=== PATIENT | male | born 1980 | race Caucasian/White ===

== ENCOUNTER 2016-04-21 17:25 | Emergency (ER) | payer SELFPAY ==
[~2016-04-21 17:25] MED LIST: Sodium Chloride Irrig Solution 250 ML BOT ONE
[2016-04-21] MEDS ORDERED: Lidocaine 1% 20 ML MDV ONE (17:39)
[2016-04-21] MEDS ORDERED: Cephalexin 500 MG CAP ONE (18:18)
[2016-04-21] MEDS ORDERED: Triple Antibiotic Oint 1 GM Packet ONE (18:18)
[2016-04-21] MEDS ORDERED: traMADol HCl 50 MG TAB ONE (18:18)
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
--- NOTE | 2016-04-21 19:33 | RAD ---
LEFT HAND FOUR VIEWS 04/21/16 INDICATION: Edema. FINDINGS: There is a metallic BB at the site of swelling on initial images. No acute fracture. No radiopaque f oreign body. There is a chronic appearing avulsive injury adjacent the ulnar styloid. Soft tissue pr ominence of the lateral aspect of the left hand. Correlate clinically. IMPRESSION: No acute osseous abnormality. POS: [facility]
== END 2016-04-21 18:29 | disposition home or self-care (01) ==
LOC: MADERS 17:25
DX: L02.512 Cutaneous abscess of left hand (principal); L03.114 Cellulitis of left upper limb; F17.210 Nicotine dependence, cigarettes, uncomplicated
CPT/HCPCS: 10060; J2001

== ENCOUNTER 2016-06-22 17:43 | Emergency (ER) | payer SELFPAY ==
[2016-06-22] MEDS ORDERED: Ketorolac Tromethamine 60 MG/2 ML VIAL ONE (18:03)
== END 2016-06-22 18:15 | disposition home or self-care (01) ==
LOC: MADERS 17:43
DX: M54.5 Low back pain (principal); F17.210 Nicotine dependence, cigarettes, uncomplicated
CPT/HCPCS: 96372; J1885

== ENCOUNTER 2016-07-28 09:21 | Emergency (ER) | payer SELFPAY ==
[2016-07-28] MEDS ORDERED: Diazepam 5 MG TAB ONE (10:00)
[2016-07-28] MEDS ORDERED: HYDROcodone/Acetaminophen 10/325 mg Tablet ONE (10:00)
[2016-07-28] MEDS ORDERED: predniSONE 20 MG TAB ONE (10:01)
== END 2016-07-28 10:10 | disposition home or self-care (01) ==
LOC: MADERS 09:21
DX: M54.42 Lumbago with sciatica, left side (principal); F17.210 Nicotine dependence, cigarettes, uncomplicated
CPT/HCPCS: 99283; J7506

== ENCOUNTER 2016-08-30 17:20 | Emergency (ER) | payer SELFPAY ==
[2016-08-30] MEDS ORDERED: HYDROcodone/Acetaminophen 10/325 mg Tablet ONE (18:36)
[2016-08-30] MEDS ORDERED: Diazepam 5 MG TAB ONE (18:36)
== END 2016-08-30 18:40 | disposition home or self-care (01) ==
LOC: MADERS 17:20
DX: M54.41 Lumbago with sciatica, right side (principal); F17.210 Nicotine dependence, cigarettes, uncomplicated
CPT/HCPCS: 99283

== ENCOUNTER 2016-09-30 19:05 | Emergency (ER) | payer SELFPAY ==
[2016-09-30] MEDS ORDERED: Ketorolac Tromethamine 30 MG/ML VIAL ONE (19:21)
[2016-09-30] MEDS ORDERED: Cyclobenzaprine 10 MG TAB ONE (19:21)
[2016-09-30] MEDS ORDERED: Ketorolac Tromethamine 60 MG/2 ML VIAL ONE (19:22)
== END 2016-09-30 19:35 | disposition home or self-care (01) ==
LOC: MADERS 19:05
DX: M54.5 Low back pain (principal); F17.210 Nicotine dependence, cigarettes, uncomplicated
CPT/HCPCS: 96372; J1885

== ENCOUNTER 2016-10-16 18:58 | Emergency (ER) | payer SELFPAY ==
[2016-10-16] MEDS ORDERED: traMADol HCl 50 MG TAB ONE (19:23)
== END 2016-10-16 19:30 | disposition home or self-care (01) ==
LOC: MADERS 18:58
DX: S39.012A Strain of muscle, fascia and tendon of lower back, initial encounter (principal); M54.16 Radiculopathy, lumbar region; F17.210 Nicotine dependence, cigarettes, uncomplicated; X50.9XXA Other and unspecified overexertion or strenuous movements or postures, initial encounter
CPT/HCPCS: 99283

== ENCOUNTER 2016-10-28 17:04 | Emergency (ER) | payer SELFPAY | END 2016-10-28 18:23 | disposition home or self-care (01) | LOC: MADERS 17:04 | DX: S29.012A Strain of muscle and tendon of back wall of thorax, initial encounter (principal); M62.830 Muscle spasm of back; F17.210 Nicotine dependence, cigarettes, uncomplicated; V79.9XXA Bus occupant (driver) (passenger) injured in unspecified traffic accident, initial encounter | CPT/HCPCS: 99283 ==

== ENCOUNTER 2016-12-05 19:09 | Emergency (ER) | payer SELFPAY | END 2016-12-05 19:54 | disposition left against medical advice (07) | LOC: MADERS 19:09 | DX: Z53.21 Procedure and treatment not carried out due to patient leaving prior to being seen by health care provider (principal) ==

== ENCOUNTER 2016-12-15 14:36 | Emergency (ER) | payer SELFPAY ==
[2016-12-15 16:05] LABS: #Basophils 0.1 thou/uL (0.0-0.2); #Eosinphils 0.2 thou/uL (0.0-0.7); #Lymphocytes 1.6 thou/uL (1.20-3.40); #Monocytes 0.6 thou/uL (0.11-0.59); #Neutrophils 4.9 thou/uL (1.40-6.50); %Basophils 1.3 % (0.0-1.0); %Eosinophils 3.1 % (0.0-10.0); %Lymphocytes 21.5 % (21.0-51.0); %Neutrophils 66.2 % (42.0-75.0); Hemoglobin 15.5 g/dL (14.0-18.0); Mean Corpuscular HGB CONC 33.8 g/dL (32.0-36.0); Mean Corpuscular Hemoglobin 31.5 pg (27.0-31.0); Mean Corpuscular Volume 93.3 fl (80.0-94.0); Mean Platelet Volume 8.3 fL (7.4-10.4); Platelet Count 211 thou/uL (130-400); RBC Distribution Width 11.7 % (11.5-14.5); Red Blood Cell (RBC) Count 4.92 mill/uL (4.70-6.10); White Blood Cell (WBC) Count 7.4 thou/uL (4.8-10.8)
--- NOTE | 2016-12-15 16:14 | RAD ---
THREE VIEWS OF THE RIGHT SHOULDER: 12/15/16 COMPARISON: None. HISTORY: Right shoulder pain. FINDINGS: Three views of the right shoulder shows no evidence of acute fracture or dislocation. No degenerativ e changes are seen. IMPRESSION: Unremarkable exam. POS: [facility]
--- NOTE | 2016-12-15 16:17 | RAD ---
SINGLE VIEW OF THE CHEST: 12/15/16 COMPARISON: 12/11/15 HISTORY: Chest pain. FINDINGS: Single view of the chest shows a normal sized cardiomediastinal silhouette. There is no evidence of consolidation, mass, or pleural effusion. The bones are unremarkable. IMPRESSION: No evidence of acute cardiopulmonary disease. POS: [facility]
[2016-12-15 16:20] LABS: ALT (SGPT) 26 U/L (8-55); AST (SGOT) 21 U/L (5-34); Albumin 4.4 g/dL (3.5-5.0); Alkaline Phosphatase 65 U/L (40-150); Anion Gap 15 mmol/L (10-20); BUN (Urea Nitrogen) 7 mg/dL (8.9-20.6); Bilirubin, Total Less than 0.3 mg/dL (0.2-1.2); CK (CPK) 85 U/L (30-200); Calc. Creatinine Clearance 0 mL/min (70-130); Calcium 9.2 mg/dL (7.8-10.44); Carbon Dioxide 25 mmol/L (22-29); Chloride 106 mmol/L (98-107); Estimated GFR-MDRD 87; Glucose 96 mg/dL (70-105); Potassium 4.2 mmol/L (3.5-5.1); Protein, Total 7.4 g/dL (6.0-8.3); Sodium 142 mmol/L (136-145)
[2016-12-15 16:22] LABS: CKMB 0.6 ng/mL (0-6.6); Troponin I Less than 0.010 ng/mL (< 0.028)
[2016-12-15] MEDS ORDERED: HYDROcodone/Acetaminophen 10/325 mg Tablet ONE (17:03)
[2016-12-15] MEDS ORDERED: Diazepam 5 MG TAB ONE (17:03)
== END 2016-12-15 17:05 | disposition home or self-care (01) ==
LOC: MADERS 14:36
DX: S43.401A Unspecified sprain of right shoulder joint, initial encounter (principal); F17.210 Nicotine dependence, cigarettes, uncomplicated; W13.2XXA Fall from, out of or through roof, initial encounter; Y92.009 Unspecified place in unspecified non-institutional (private) residence as the place of occurrence of the external cause
CPT/HCPCS: 36415; 71010; 80053; 82553; 84484; 85025; 93005

== ENCOUNTER 2017-01-09 15:32 | Emergency (ER) | payer SELFPAY ==
[2017-01-09] MEDS ORDERED: Diazepam 5 MG TAB ONE (16:15)
[2017-01-09] MEDS ORDERED: HYDROcodone/Acetaminophen 10/325 mg Tablet ONE (16:15)
== END 2017-01-09 16:20 | disposition home or self-care (01) ==
LOC: MADERS 15:32
DX: S29.012A Strain of muscle and tendon of back wall of thorax, initial encounter (principal); M62.830 Muscle spasm of back; F17.210 Nicotine dependence, cigarettes, uncomplicated; X50.0XXA Overexertion from strenuous movement or load, initial encounter
CPT/HCPCS: 99283

== ENCOUNTER 2017-01-21 23:07 | Emergency (ER) | payer SELFPAY ==
[2017-01-22] MEDS ORDERED: Ketorolac Tromethamine 60 MG/2 ML VIAL ONE (00:06)
[2017-01-22] MEDS ORDERED: Diazepam 5 MG TAB ONE (00:06)
== END 2017-01-22 00:23 | disposition home or self-care (01) ==
LOC: MADERS 23:07
DX: M54.5 Low back pain (principal); F17.210 Nicotine dependence, cigarettes, uncomplicated; Z79.891 Long term (current) use of opiate analgesic
CPT/HCPCS: 96372; J1885

== ENCOUNTER 2017-02-03 14:26 | Emergency (ER) | payer SELFPAY ==
[2017-02-03] MEDS ORDERED: HYDROcodone/Acetaminophen 10/325 mg Tablet ONE (15:14)
[2017-02-03] MEDS ORDERED: Diazepam 5 MG TAB ONE (15:14)
== END 2017-02-03 15:15 | disposition home or self-care (01) ==
LOC: MADERS 14:26
DX: M54.5 Low back pain (principal); F17.210 Nicotine dependence, cigarettes, uncomplicated
CPT/HCPCS: 99283

== ENCOUNTER 2017-02-16 18:46 | Emergency (ER) | payer SELFPAY ==
[2017-02-16] MEDS ORDERED: HYDROcodone/Acetaminophen 10/325 mg Tablet ONE (19:18)
[2017-02-16] MEDS ORDERED: Diazepam 5 MG TAB ONE (19:18)
--- NOTE | 2017-02-16 20:01 | CT ---
HEAD CT 02/16/17 INDICATION: Fall from horse, head injury. FINDINGS: There is no ventriculomegaly, mass effect, midline shift, or acute intracranial hemorrhage. Calvariu m is intact. No pneumocephalus. IMPRESSION: No acute intracranial hemorrhage or mass effect. POS: [facility]
--- NOTE | 2017-02-16 20:02 | CT ---
CERVICAL SPINE CT: 02/16/17 INDICATION: Fall from horse, neck injury and pain. FINDINGS: There is mild degenerative change of the cervical spine without fracture or subluxation. Craniocervi bj junction is intact. No retropulsion of bone into the vertebral canal. IMPRESSION: No acute fracture of the cervical spine. POS: [facility]
== END 2017-02-16 20:55 | disposition home or self-care (01) ==
LOC: MADERS 18:46
DX: S10.93XA Contusion of unspecified part of neck, initial encounter (principal); S20.222A Contusion of left back wall of thorax, initial encounter; V80.010A Animal-rider injured by fall from or being thrown from horse in noncollision accident, initial encounter; F17.210 Nicotine dependence, cigarettes, uncomplicated
CPT/HCPCS: 70450; 72125

== ENCOUNTER 2017-03-05 13:51 | Emergency (ER) | payer SELFPAY ==
[2017-03-05] MEDS ORDERED: traMADol HCl 50 MG TAB ONE (14:57)
[2017-03-05] MEDS ORDERED: Ketorolac Tromethamine 10 MG TAB ONE (14:58)
== END 2017-03-05 15:00 | disposition home or self-care (01) ==
LOC: MADERS 13:51
DX: S61.011A Laceration without foreign body of right thumb without damage to nail, initial encounter (principal); L08.9 Local infection of the skin and subcutaneous tissue, unspecified; F17.210 Nicotine dependence, cigarettes, uncomplicated; W45.8XXA Other foreign body or object entering through skin, initial encounter
CPT/HCPCS: 12002

== ENCOUNTER 2017-03-08 18:52 | Emergency (ER) | payer SELFPAY ==
[2017-03-08] MEDS ORDERED: Dexamethasone 4 MG TAB ONE (19:33)
[2017-03-08] MEDS ORDERED: Benzonatate 100 MG CAP ONE (19:33)
--- NOTE | 2017-03-08 19:49 | RAD ---
CHEST TWO VIEW 03/08/17 HISTORY: Cough. COMPARISON: Chest one view, 12/15/16. FINDINGS: The lungs are clear. No pneumothorax or effusion. The cardiac silhouette and mediastinal contours are within normal limits. IMPRESSION: No acute intrathoracic abnormality. POS: [facility]
== END 2017-03-08 19:36 | disposition home or self-care (01) ==
LOC: MADERS 18:52
DX: J20.9 Acute bronchitis, unspecified (principal); F17.210 Nicotine dependence, cigarettes, uncomplicated
CPT/HCPCS: 71020; J8540

== ENCOUNTER 2017-03-11 16:17 | Emergency (ER) | payer SELFPAY ==
[2017-03-11] MEDS ORDERED: Dexamethasone 4 MG TAB ONE (16:47)
[2017-03-11] MEDS ORDERED: Acetaminophen 500 MG TAB ONE (16:48)
== END 2017-03-11 16:55 | disposition home or self-care (01) ==
LOC: MADERS 16:17
DX: M54.5 Low back pain (principal); F17.210 Nicotine dependence, cigarettes, uncomplicated; X50.0XXA Overexertion from strenuous movement or load, initial encounter
CPT/HCPCS: 99283; J8540

== ENCOUNTER 2017-04-03 19:06 | Emergency (ER) | payer SELFPAY | END 2017-04-03 20:00 | disposition left against medical advice (07) | LOC: MADERS 19:06 | DX: Z53.21 Procedure and treatment not carried out due to patient leaving prior to being seen by health care provider (principal) ==

== ENCOUNTER 2017-04-06 01:22 | Emergency (ER) | payer SELFPAY ==
[2017-04-06] MEDS ORDERED: Diazepam 5 MG TAB ONE (02:06)
[2017-04-06] MEDS ORDERED: HYDROcodone/Acetaminophen 10/325 mg Tablet ONE (02:06)
== END 2017-04-06 02:15 | disposition home or self-care (01) ==
LOC: MADERS 01:22
DX: S39.012A Strain of muscle, fascia and tendon of lower back, initial encounter (principal); F17.210 Nicotine dependence, cigarettes, uncomplicated; X50.0XXA Overexertion from strenuous movement or load, initial encounter
CPT/HCPCS: 99283

== ENCOUNTER 2017-04-24 21:01 | Emergency (ER) | payer SELFPAY ==
[2017-04-24] MEDS ORDERED: Tetracaine 0.5% OPHTH SOLN/PF 4 ML BOT ONE (22:49)
[2017-04-24] MEDS ORDERED: Tobramycin Sulfate 0.3% Ophth Susp 5 ml Bottle ONE (23:05)
[2017-04-24] MEDS ORDERED: traMADol HCl 50 MG TAB ONE (23:08)
== END 2017-04-24 23:20 | disposition home or self-care (01) ==
LOC: MADERS 21:01
DX: T15.02XA Foreign body in cornea, left eye, initial encounter (principal); H16.002 Unspecified corneal ulcer, left eye; F17.210 Nicotine dependence, cigarettes, uncomplicated; W89.0XXA Exposure to welding light (arc), initial encounter; Y92.69 Other specified industrial and construction area as the place of occurrence of the external cause
CPT/HCPCS: 99283

== ENCOUNTER 2017-05-10 11:21 | Emergency (ER) | payer SELFPAY | END 2017-05-10 11:50 | disposition home or self-care (01) | LOC: MADERS 11:21 | DX: J11.1 Influenza due to unidentified influenza virus with other respiratory manifestations (principal); G89.29 Other chronic pain; M54.9 Dorsalgia, unspecified; F17.210 Nicotine dependence, cigarettes, uncomplicated | CPT/HCPCS: 99283 ==

== ENCOUNTER 2017-08-03 12:27 | Emergency (ER) | payer SELFPAY ==
[2017-08-03 12:54] LABS: #Basophils 0.1 thou/uL (0.0-0.2); #Eosinphils 0.4 thou/uL (0.0-0.7); #Lymphocytes 1.7 thou/uL (1.20-3.40); #Monocytes 0.6 thou/uL (0.11-0.59); #Neutrophils 5.3 thou/uL (1.40-6.50); %Basophils 1.1 % (0.0-1.0); %Eosinophils 5.3 % (0.0-10.0); %Lymphocytes 21.5 % (21.0-51.0); %Monocytes 6.9 % (0.0-10.0); %Neutrophils 65.2 % (42.0-75.0); Hemoglobin 17.8 g/dL (14.0-18.0); Mean Corpuscular HGB CONC 33.8 g/dL (32.0-36.0); Mean Corpuscular Hemoglobin 30.8 pg (27.0-31.0); Mean Corpuscular Volume 91.3 fl (80.0-94.0); Mean Platelet Volume 6.8 fL (7.4-10.4); Platelet Count 284 thou/uL (130-400); RBC Distribution Width 11.8 % (11.5-14.5); Red Blood Cell (RBC) Count 5.78 mill/uL (4.70-6.10); White Blood Cell (WBC) Count 8.1 thou/uL (4.8-10.8)
[2017-08-03] MEDS ORDERED: HYDROmorphone 0.5 MG/0.5 ML SYRINGE ONE (12:54)
[2017-08-03] MEDS ORDERED: Morphine 10 MG/ML VIAL ONE (12:54)
[2017-08-03] MEDS ORDERED: Ondansetron HCl/PF 4 MG/2 ML Vial ONE (12:55)
[2017-08-03 13:10] LABS: ALT (SGPT) 25 U/L (8-55); AST (SGOT) 21 U/L (5-34); Alkaline Phosphatase 86 U/L (40-150); Anion Gap 16 mmol/L (10-20); BUN (Urea Nitrogen) 13 mg/dL (8.9-20.6); Bilirubin, Total 0.3 mg/dL (0.2-1.2); Calc. Creatinine Clearance 0 mL/min (70-130); Calcium 10.2 mg/dL (7.8-10.44); Carbon Dioxide 26 mmol/L (22-29); Chloride 103 mmol/L (98-107); Estimated GFR-MDRD 63; Globulin 3.5 g/dL (2.4-3.5); Glucose 71 mg/dL (70-105); Lipase 21 U/L (8-78); Potassium 4.2 mmol/L (3.5-5.1); Protein, Total 8.5 g/dL (6.0-8.3); Sodium 141 mmol/L (136-145)
--- NOTE | 2017-08-03 13:16 | CT ---
CT BRAIN PERFORMED WITHOUT CONTRAST ENHANCEMENT: History: Patient was ejected from a horse with left sided head pain. FINDINGS: Ventricular and cisternal system is within normal limits. There are no signs of intracerebral hemorrh age or extraaxial fluid collections. The mastoid air cells and visualized sinuses are clear. IMPRESSION: No acute intracranial abnormalities. POS: [facility]
--- NOTE | 2017-08-03 13:17 | CT ---
CT OF CERVICAL SPINE PERFORMED WITHOUT COTNRAST ENHANCEMENT: HISTORY: The patient fell from a horse with neck pain. FINDINGS: Vertebral bodies are normal in height. Disk spaces appear well preserved. The facets are in normal alignment. 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 There is no CT evidence for a fracture. IMPRESSION: No CT evidence of fracture of the cervical spine. POS: [facility]
--- NOTE | 2017-08-03 13:39 | CT ---
CT CHEST AND ABDOMEN AND PELVIS PERFORMED WITH INTRAVENOUS CONTRAST ENHANCEMENT: CT THORACIC SPINE: CT LUMBAR SPINE: HISTORY: Left sided pain from the chest to the pelvis. The patient was ejected from a horse today. FINDINGS: CHEST: The lungs are clear of any infiltrative process. There are atelectatic changes in the bases. No pleural effusions or pneumothorax. There are no rib fractures identified. The thoracic aorta is normal in caliber. No signs of any mediastinal hematoma. There appears to be some minimal residual thymic tissue present. ABDOMEN: Scan artifact related to arm position degrades detail for subtle abnormalities of the liver and spleen. No abnormalities are seen. The pancreas and gallbladder regions appear unremarkable. The right and left adrenal glands and the right and left kidneys are normal in appearance. No signs for bowel wall injury. No free fluid. PELVIS: The bladder is distended. No free fluid. No adenopathy or mass. There is no evidence of f racture of the bony pelvic ring. THORACIC SPINE: Unremarkable. LUMBAR SPINE: Unremarkable. IMPRESSION: No acute abnormalities of the chest, abdomen, or pelvis. POS: [facility]
[2017-08-03] MEDS ORDERED: diphenhydrAMINE 50 MG/ML VIAL ONE (13:41)
--- NOTE | 2017-08-03 13:41 | RAD ---
LEFT WRIST FOUR VIEWS: HISTORY: Fall. Wrist injury. FINDINGS: Oblique fracture through the proximal pole of the scaphoid has well corticated margins. Small, well corticated, ossific fragment, 0.3 cm, adjacent to the base of the triquetral on the oblique view, has the appearance of an old, ununited ossific avulsion, possibly from the ulnar styloid. Ulna negative variant is noted. Osteophytosis is most pronounced at the radial styloid. No acute fracture or dis location. IMPRESSION: Mild osteoarthritic changes. Old post traumatic changes, including an ununited scaphoid fracture. N o acute osseous abnormalities are demonstrated. POS: [facility]
[2017-08-03 14:02] LABS: Bilirubin Negative (Negative); Blood, Urine Negative (Negative); Clarity Clear (Clear); Glucose, Urine (Dipstick) Negative (Negative); Leukocyte Negative (Negative); Nitrite Negative (Negative); Protein, Urine (Dipstick) Negative (Neg-Trace); Urobilinogen 0.2 mg/dL (0.2-1.0)
[2017-08-03 14:24] LABS: Bacteria/HPF Rare-Few HPF (None Seen); RBC/HPF None Seen HPF (0-3); Squamous Epithelial 0-3 HPF (0-3); WBC/HPF None Seen HPF (0-3)
== END 2017-08-03 14:20 | disposition home or self-care (01) ==
LOC: MADERS 12:27
DX: T07.XXXA Unspecified multiple injuries, initial encounter (principal); F17.210 Nicotine dependence, cigarettes, uncomplicated; V80.010A Animal-rider injured by fall from or being thrown from horse in noncollision accident, initial encounter
CPT/HCPCS: 70450; 71260; 72125; 74177; 80053; 81001; 83690; 85025; 96374; 96375; J1170; J1200; J2270; J2405

== ENCOUNTER 2017-10-25 16:44 | Emergency (ER) | payer SELFPAY ==
[~2017-10-25 16:44] MED LIST changes: +Sodium Chloride 0.9% 1,000 ML BAG ONE; -Sodium Chloride Irrig Solution 250 ML BOT ONE
[2017-10-25] MEDS ORDERED: SUMAtriptan Succinate 6 MG/0.5 ML VIAL ONE (17:10)
[2017-10-25] MEDS ORDERED: Metoclopramide HCl 10 MG/2 ML VIAL ONE (17:10)
== END 2017-10-25 17:50 | disposition left against medical advice (07) ==
LOC: MADERS 16:44
DX: R51 Headache (principal); F17.210 Nicotine dependence, cigarettes, uncomplicated
CPT/HCPCS: 96361; 96372; 96374; J2765; J3030; J7050

== ENCOUNTER 2017-11-23 19:14 | Emergency (ER) | payer SELFPAY ==
[2017-11-23] MEDS ORDERED: Lidocaine 1% 20 ML MDV ONE (19:28)
[2017-11-23] MEDS ORDERED: Lidocaine Viscous Sol 2% 15 ml UD Cup ONE (19:45)
[2017-11-23] MEDS ORDERED: Mag-Al Plus 1200 MG/1200 MG/120 MG/30 ML UDCUP ONE (19:45)
[2017-11-24 12:01] LABS: BF Color Red; Clarity Cloudy/Turbid (Clear); RBC Background Count 0.001; RBC Count-Automated 111000 /cumm; Tube # EDTA; WBC/NonHematic-Auto 2090 /cumm
[2017-11-24 13:12] LABS: BF Segmented Neutrophils 17 %; Cell Count Non Hematic 77 %; Eosinophils 1 %; Lymphocytes 5 %
== END 2017-11-23 20:01 | disposition home or self-care (01) ==
LOC: MADERS 19:14
DX: M70.22 Olecranon bursitis, left elbow (principal); F17.210 Nicotine dependence, cigarettes, uncomplicated
CPT/HCPCS: 20605; 85060; 87070; 87205; 89051; J2001

== ENCOUNTER 2018-04-25 19:31 | Emergency (ER) | payer SELFPAY | END 2018-04-25 19:58 | disposition home or self-care (01) | LOC: MADERS 19:31 | DX: K02.9 Dental caries, unspecified (principal); F17.210 Nicotine dependence, cigarettes, uncomplicated | CPT/HCPCS: 99281 ==

== ENCOUNTER 2019-02-24 21:58 | Emergency (ER) | payer SELFPAY ==
--- NOTE | 2019-02-24 22:44 | RAD ---
PORTABLE CHEST ONE VIEW: Date: 02-24-19 Time: 10:39 p.m. History: Cough. FINDINGS: Comparison is made with exam of 03-08-17. The heart size is normal. The lungs are expanded without focal areas of consolidation, pneumothoraces or pleural effusions. IMPRESSION: No radiographic evidence of acute cardiopulmonary process. POS: [facility]
[2019-02-24 22:57] LABS: Bilirubin Negative (Negative); Blood, Urine Negative (Negative); Clarity Clear (Clear); Glucose, Urine (Dipstick) Negative (Negative); Leukocyte Negative (Negative); Nitrite Negative (Negative); Protein, Urine (Dipstick) Negative (Neg-Trace); Urobilinogen 0.2 mg/dL (Less than 2)
[2019-02-24 23:00] LABS: #Basophils 0.1 thou/uL (0.0-0.2); #Eosinphils 0.4 thou/uL (0.0-0.7); #Lymphocytes 2.2 thou/uL (1.20-3.40); #Monocytes 0.7 thou/uL (0.11-0.59); #Neutrophils 3.2 thou/uL (1.40-6.50); %Basophils 1.7 % (0.0-1.0); %Eosinophils 6.3 % (0.0-10.0); %Lymphocytes 33.5 % (21.0-51.0); %Monocytes 9.8 % (0.0-10.0); %Neutrophils 48.7 % (42.0-75.0); Hemoglobin 15.4 g/dL (14.0-18.0); Mean Corpuscular HGB CONC 31.6 g/dL (32.0-36.0); Mean Corpuscular Hemoglobin 29.8 pg (27.0-31.0); Mean Corpuscular Volume 94.3 fL (78.0-98.0); Mean Platelet Volume 6.9 fL (7.4-10.4); Platelet Count 251 thou/uL (130-400); RBC Distribution Width 11.3 % (11.5-14.5); Red Blood Cell (RBC) Count 5.14 mill/uL (4.70-6.10); White Blood Cell (WBC) Count 6.6 thou/uL (4.8-10.8)
[2019-02-24 23:09] LABS: Amphetamine Not Detected (NotDetected); Barbiturates Screen Not Detected (NotDetected); Benzodiazepine Screen Not Detected (NotDetected); Cocaine Metabolite Screen Not Detected (NotDetected); Medtox Control Line Valid? VALID (VALID); Methadone Not Detected (NotDetected); Methamphetamine Not Detected (NotDetected); Opiate Screen Not Detected (NotDetected); Oxycodone Screen Not Detected (NotDetected); Phencyclidine (PCP) Not Detected (NotDetected); THC/Cannabinoid Screen Not Detected (NotDetected); Tricyclic Screen Not Detected (NotDetected)
[2019-02-24] MEDS ORDERED: Sodium Chloride 0.9% 1,000 ML ONE (23:10)
[2019-02-24] MEDS ORDERED: methylPREDNISolone Sod Succ/PF 125 MG/2 ML VIAL ONE (23:10)
[2019-02-24 23:14] LABS: ALT (SGPT) 34 U/L (8-55); AST (SGOT) 22 U/L (5-34); Albumin 4.1 g/dL (3.5-5.0); Alkaline Phosphatase 81 U/L (40-110); Anion Gap 15 mmol/L (10-20); BUN (Urea Nitrogen) 12 mg/dL (8.9-20.6); Bilirubin, Total 0.2 mg/dL (0.2-1.2); CK (CPK) 54 U/L (30-200); Calc. Creatinine Clearance 0 mL/min (70-130); Calcium 9.4 mg/dL (7.8-10.44); Carbon Dioxide 26 mmol/L (22-29); Chloride 104 mmol/L (98-107); Estimated GFR-MDRD 84; Glucose 87 mg/dL (70-105); Potassium 4.4 mmol/L (3.5-5.1); Protein, Total 7.1 g/dL (6.0-8.3); Sodium 141 mmol/L (136-145)
== END 2019-02-25 00:15 | disposition home or self-care (01) ==
LOC: MADERS 21:58
DX: J44.1 Chronic obstructive pulmonary disease with (acute) exacerbation (principal); I10 Essential (primary) hypertension; F17.210 Nicotine dependence, cigarettes, uncomplicated; Z71.6 Tobacco abuse counseling
CPT/HCPCS: 71045; 80053; 80306; 81003; 82550; 85025; 87804; 96361; 96374; 99406; J2930; J7050; J7620

== ENCOUNTER 2020-11-25 01:43 | Emergency (ER) | payer SELFPAY ==
[2020-11-25] MEDS ORDERED: Bacitracin 1 PK ONE (02:11)
== END 2020-11-25 02:17 | disposition home or self-care (01) ==
LOC: MADERS 01:43
DX: S51.811A Laceration without foreign body of right forearm, initial encounter (principal); F17.200 Nicotine dependence, unspecified, uncomplicated; W45.8XXA Other foreign body or object entering through skin, initial encounter
CPT/HCPCS: 99282

== ENCOUNTER 2021-12-10 16:38 | Emergency (ER) | payer SELFPAY | END 2021-12-10 17:31 | disposition home or self-care (01) | LOC: MADERS 16:38 | DX: M79.10 Myalgia, unspecified site (principal); K59.00 Constipation, unspecified; R51.9 Headache, unspecified; X50.0XXA Overexertion from strenuous movement or load, initial encounter; Z87.891 Personal history of nicotine dependence | CPT/HCPCS: 99281 ==

== ENCOUNTER 2022-07-19 21:34 | Emergency (ER) | payer SELFPAY ==
[2022-07-19] MEDS ORDERED: Boostrix 0.5 ML (Tdap) VIAL (>/=7 yrs of age) ONE (21:56)
[2022-07-19] MEDS ORDERED: Ketorolac Tromethamine 60 MG/2 ML VIAL ONE (21:56)
[2022-07-19] MEDS ORDERED: Ketorolac Tromethamine 10 MG TAB ONE (23:08)
== END 2022-07-19 23:05 | disposition home or self-care (01) ==
LOC: MADERS 21:34
DX: S20.212A Contusion of left front wall of thorax, initial encounter (principal); Z87.891 Personal history of nicotine dependence; W19.XXXA Unspecified fall, initial encounter
CPT/HCPCS: 71046; 90471; 90715; J1885

== ENCOUNTER 2022-11-02 00:29 | Emergency (ER) | payer SELFPAY ==
[2022-11-02] MEDS ORDERED: diphenhydrAMINE 25 MG CAP ONE (01:25)
[2022-11-02] MEDS ORDERED: Ondansetron PF 4 MG/2 ML Vial ONE (01:25)
[2022-11-02] MEDS ORDERED: Sodium Chloride 0.9% 1,000 ML ONE (01:25)
[2022-11-02] MEDS ORDERED: Acetaminophen 500 MG TAB ONE (01:25)
[2022-11-02] MEDS ORDERED: Mag-Al Plus 1200 MG/1200 MG/120 MG/30 ML UDCUP ONE (01:38)
[2022-11-02 04:05] LABS: Hemoglobin 17.6 g/dL (14.0-18.0); Mean Corpuscular HGB CONC 33.8 g/dL (32.0-36.0); Mean Corpuscular Hemoglobin 30.5 pg (27.0-31.0); Mean Corpuscular Volume 90.3 fl (78.0-98.0); Platelet Count 249 10x3/uL (130-400); RBC Distribution Width 11.9 % (11.5-14.5); Red Blood Cell (RBC) Count 5.76 mill/uL (4.70-6.10); White Blood Cell (WBC) Count 7.9 10x3/uL (4.8-10.8)
[2022-11-02 04:06] LABS: #Basophils 0.1 thou/uL (0.0-0.2); #Eosinphils 0.4 thou/uL (0.0-0.7); #Lymphocytes 0.6 thou/uL (1.20-3.40); #Monocytes 0.7 thou/uL (0.11-0.59); #Neutrophils 6.2 thou/uL (1.40-6.50); %Eosinophils 4.8 % (0.0-10.0); %Lymphocytes 7.1 % (21.0-51.0); %Monocytes 8.7 % (0.0-10.0); %Neutrophils 78.4 % (42.0-75.0); Mean Platelet Volume 7.6 fL (7.4-10.4)
[2022-11-02 04:07] LABS: Carbon Dioxide 25 mmol/L (22-29); Chloride 101 mmol/L (98-107); Potassium 3.5 mmol/L (3.5-5.1); Sodium 137 mmol/L (136-145)
[2022-11-02 04:09] LABS: Albumin 4.7 g/dL (3.5-5.0); BUN (Urea Nitrogen) 13 mg/dL (8.9-20.6); Bilirubin, Total 0.7 mg/dL (0.2-1.2); Calc. Creatinine Clearance 0 mL/min (70-130); Calcium 9.8 mg/dL (7.6-10.4); Estimated GFR 87; Globulin 3.3 g/dL (2.4-3.5); Glucose 121 mg/dL (70-105)
[2022-11-02 04:10] LABS: ALT (SGPT) 23 U/L (8-55); AST (SGOT) 20 U/L (5-34); Alkaline Phosphatase 92 U/L (40-110); Lipase 14 U/L (8-78); Magnesium 1.9 mg/dL (1.6-2.6)
[2022-11-02 04:12] LABS: Anion Gap 15 mmol/L (10-20)
[2022-11-02] MEDS ORDERED: Pantoprazole 40 MG VIAL ONE (06:24)
[2022-11-02] MEDS ORDERED: Sodium Chloride 0.9% 2,000 ML ONE (06:27)
[2022-11-02 07:23] LABS: Bilirubin Negative (Negative); Blood, Urine Negative (Negative); Clarity Clear (Clear); Glucose, Urine (Dipstick) Negative (Negative); Ketone, Urine Negative (Negative); Leukocyte Negative (Negative); Nitrite Negative (Negative); Protein, Urine (Dipstick) 30 mg/dL (Neg-Trace); Specific Gravity, Urine 1.025 (1.005-1.030); Urobilinogen 0.2 mg/dL (Less than 2)
[2022-11-02 07:42] LABS: RBC/HPF 0-3 HPF (0-3)
[2022-11-02 07:43] LABS: Bacteria/HPF Rare-Few HPF (None Seen); CAUTI Indications for Culture Pelvic or flank pain; Squamous Epithelial 0-3 HPF (0-3); WBC/HPF 0-3 HPF (0-3)
[2022-11-02 07:44] LABS: Urine Culture Reflex No No
[2022-11-02 07:56] LABS: Amphetamine Detected (NotDetected); Barbiturates Screen Not Detected (NotDetected); Benzodiazepine Screen Not Detected (NotDetected); Cocaine Metabolite Screen Detected (NotDetected); Methadone Not Detected (NotDetected); Methamphetamine Detected (NotDetected); Opiate Screen Not Detected (NotDetected); Oxycodone Screen Not Detected (NotDetected); Phencyclidine (PCP) Not Detected (NotDetected); THC/Cannabinoid Screen Detected (NotDetected); Tricyclic Screen Not Detected (NotDetected)
== END 2022-11-02 08:02 | disposition home or self-care (01) ==
LOC: MADERS 00:29
DX: E86.0 Dehydration (principal); K20.90 Esophagitis, unspecified without bleeding; R11.2 Nausea with vomiting, unspecified; F17.290 Nicotine dependence, other tobacco product, uncomplicated
CPT/HCPCS: 80053; 80306; 81001; 83605; 83690; 83735; 84484; 85025; 93005; 96361; 96374; 96375; C9113; J2405; J7050

== ENCOUNTER 2023-12-11 10:20 | Emergency (ER) | payer OTHER, SELFPAY ==
[2023-12-11] MEDS ORDERED: Amoxicillin/Potassium Clav 875 MG TAB ONE (11:10)
[2023-12-11] MEDS ORDERED: HYDROcodone/Acetaminophen 5/325 mg Tablet ONE (11:11)
== END 2023-12-11 11:18 | disposition home or self-care (01) ==
LOC: MADERS 10:20
DX: K04.7 Periapical abscess without sinus (principal); K02.9 Dental caries, unspecified; F17.290 Nicotine dependence, other tobacco product, uncomplicated
CPT/HCPCS: 99282

== ENCOUNTER 2024-12-21 18:31 | Emergency (ER) | payer OTHER ==
[2024-12-21] MEDS ORDERED: Lidocaine 1% (PF) 30 ML VIAL ONE (19:11)
== END 2024-12-21 19:33 | disposition home or self-care (01) ==
LOC: MADERS 18:31
DX: S60.453A Superficial foreign body of left middle finger, initial encounter (principal); W45.8XXA Other foreign body or object entering through skin, initial encounter
CPT/HCPCS: 96372; 99283